=== PATIENT | female | born 1985 | race Caucasian/White ===

== ENCOUNTER 2018-05-09 03:17 | Inpatient (IN) | payer OTHER ==
[2018-05-09] MEDS ORDERED: NACL 0.9% 3 ML SYG IV (04:00)
[2018-05-09] MEDS ORDERED: ONDANSETRON 4 MG INJ IV (04:00)
[2018-05-09 04:01] LABS: ADD MAN DIFF? NO
[2018-05-09] MEDS: SOD CHLORIDE 0.9% 1,000 ML IV (04:08)
[2018-05-09 04:16] LABS: BASOPHILS % 0.7 % (0.0-2.0); EOSINOPHILS # 0.1 10^3/ul (0.0-0.5); HEMATOCRIT 31.1 % (37.0-47.0); HEMOGLOBIN 9.7 g/dl (12.0-16.0); LYMPHOCYTES % 33.8 % (15.0-51.0); MEAN CORPUSCULAR HGB CONC 31.2 g/dl (32.0-37.0); MEAN CORPUSCULAR VOLUME 76.8 fl (82.0-101.0); MEAN PLATELET VOLUME 10.5 fl (7.4-10.4); MONOCYTE # 0.5 10^3/ul (0.3-0.9); MONOCYTES % 8.4 % (0.0-11.0); NEUTROPHIL # 3.3 10^3/ul (1.6-7.5); NEUTROPHILS % 54.8 % (39.0-77.0); PLATELET COUNT 294 10^3/UL (140-415); RED BLOOD COUNT 4.05 10^6/ul (4.20-5.40); RED CELL DISTRIBUTION WIDTH 15.2 % (11.5-14.5)
[2018-05-09 04:17] LABS: PLATELET COUNT 285 10^3/UL (140-415)
[2018-05-09 04:22] LABS: ALANINE AMINOTRANSFERASE 148 IU/L (13-69); ALBUMIN 3.4 g/dl (3.3-4.9); ALBUMIN/GLOBULIN RATIO 1.13; ALKALINE PHOSPHATASE 77 IU/L (42-121); ANION GAP 13 (5-13); ASPARTATE AMINO TRANSFERASE 135 IU/L (15-46); BLOOD UREA NITROGEN 4 mg/dl (7-20); CALCIUM 8.6 mg/dl (8.4-10.2); CARBON DIOXIDE 22 mmol/L (21-31); CHLORIDE 106 mmol/L (97-110); CREATININE 0.49 mg/dl (0.44-1.00); Estimated GFR > 60 mL/min (>60); GLUCOSE 80 mg/dl (70-220); MAGNESIUM 1.7 mg/dl (1.7-2.5); SODIUM 141 mmol/L (135-144); TOTAL PROTEIN 6.4 g/dl (6.1-8.1)
[2018-05-09 05:01] LABS: INR 1.14; PARTIAL THROMBOPLASTIN TIME 30.2 Sec (23.0-35.0); PROTIME 14.7 Sec (11.9-14.9); PT RATIO 1.1
[2018-05-09 05:06] LABS: THROMBIN TIME 16.1 SEC (13.8-19.1)
[2018-05-09] MEDS: PIPER-TAZO 3.375 GM IV (PMX) 100 ML IVPB ×3 (05:30→19:10)
[2018-05-09] MEDS: PANTOPRAZOLE 40 MG INJ IV (05:30)
[2018-05-09] MEDS: morphine 2 MG INJ IV (10:45)
[2018-05-09] MEDS: FAMOTIDINE 20 MG INJ IV (13:41)
[2018-05-09] MEDS: morphine 4 MG/ML VIAL IV ×2 (19:00→23:59)
[2018-05-10] MEDS: PIPER-TAZO 3.375 GM IV (PMX) 100 ML IVPB ×5 (00:07→19:35)
[2018-05-10 05:11] LABS: ADD MAN DIFF? NO
[2018-05-10 05:15] LABS: BASOPHILS % 0.4 % (0.0-2.0); EOSINOPHILS # 0.2 10^3/ul (0.0-0.5); HEMATOCRIT 29.5 % (37.0-47.0); HEMOGLOBIN 9.2 g/dl (12.0-16.0); LYMPHOCYTES % 41.8 % (15.0-51.0); MEAN CORPUSCULAR HEMOGLOBIN 23.9 pg (29.0-33.0); MEAN CORPUSCULAR HGB CONC 31.2 g/dl (32.0-37.0); MEAN CORPUSCULAR VOLUME 76.6 fl (82.0-101.0); MEAN PLATELET VOLUME 10.2 fl (7.4-10.4); MONOCYTE # 0.4 10^3/ul (0.3-0.9); MONOCYTES % 9.1 % (0.0-11.0); NEUTROPHIL # 2.1 10^3/ul (1.6-7.5); NEUTROPHILS % 44.5 % (39.0-77.0); PLATELET COUNT 281 10^3/UL (140-415); RED BLOOD COUNT 3.85 10^6/ul (4.20-5.40); RED CELL DISTRIBUTION WIDTH 15.3 % (11.5-14.5)
[2018-05-10 05:15] LABS: WHITE BLOOD COUNT 4.8 10^3/ul (4.8-10.8)
[2018-05-10] MEDS: PANTOPRAZOLE 40 MG INJ IV (05:28)
[2018-05-10] MEDS: morphine 4 MG/ML VIAL IV ×4 (05:29→20:33)
[2018-05-10 05:41] LABS: ALANINE AMINOTRANSFERASE 97 IU/L (13-69); ALBUMIN 3.2 g/dl (3.3-4.9); ALKALINE PHOSPHATASE 70 IU/L (42-121); ANION GAP 14 (5-13); ASPARTATE AMINO TRANSFERASE 59 IU/L (15-46); BLOOD UREA NITROGEN 3 mg/dl (7-20); CALCIUM 8.5 mg/dl (8.4-10.2); CARBON DIOXIDE 22 mmol/L (21-31); CHLORIDE 106 mmol/L (97-110); CREATININE 0.52 mg/dl (0.44-1.00); Estimated GFR > 60 mL/min (>60); GLUCOSE 67 mg/dl (70-220); LIPASE 56 U/L (23-300); MAGNESIUM 1.8 mg/dl (1.7-2.5); POTASSIUM 3.9 mmol/L (3.5-5.1); SODIUM 142 mmol/L (135-144); TOTAL PROTEIN 6.1 g/dl (6.1-8.1)
[2018-05-10] MEDS ORDERED: KETOROLAC 30 MG INJ (09:41)
[2018-05-10] MEDS ORDERED: ROPIVACAINE 0.5 % 30 ML VIAL (09:41)
[2018-05-10] MEDS ORDERED: METOCLOPRAMIDE 10 MG INJ (09:41)
[2018-05-10] MEDS ORDERED: PROPOFOL 20 ML (09:41)
[2018-05-10] MEDS ORDERED: NEOSTIGMINE 3 MG/3 ML SYRINGE (09:41)
[2018-05-10] MEDS ORDERED: ONDANSETRON 4 MG INJ (09:41)
[2018-05-10] MEDS ORDERED: ROCURONIUM 50 MG INJ (09:41)
[2018-05-10] MEDS ORDERED: GLYCOPYRROLATE 0.4 MG INJ (09:41)
[2018-05-10] MEDS ORDERED: HYDROmorphONE 1 MG/5 ML IV SYRINGE IV (10:00)
[2018-05-10] MEDS ORDERED: INFLUENZA VIRUS VACCINE 0.5 ML (DISPENSING) IM* (10:00)
[2018-05-10] MEDS ORDERED: KETOROLAC 30 MG INJ IV (10:00)
[2018-05-10] MEDS ORDERED: EPHEDrine 25 MG/5 ML SYG (10:28)
[2018-05-10] MEDS ORDERED: PHENYLephrine 10 MG INJ (11:19)
[2018-05-10] MEDS: BUPIVACAINE 0.5%/EPI (SDV) 30 ML INJ (11:23)
[2018-05-10] MEDS ORDERED: morphine 2 MG INJ IV (11:30)
[2018-05-10] MEDS: ONDANSETRON 4 MG INJ IV ×2 (11:32→18:25)
[2018-05-10] MEDS: MEPERIDINE 25 MG INJ IV (11:32)
[2018-05-10] MEDS: HYDROmorphONE 1 MG/5 ML IV SYRINGE IV ×2 (11:32→11:40)
[2018-05-10] MEDS: DIPHENHYDRAMINE 50 MG INJ IV (11:47)
[2018-05-10] MEDS: OXYCODONE/ACETAMINOPHEN (5/325) TAB PO (18:32)
[2018-05-10] MEDS: SOD CHLORIDE 0.9% 1,000 ML IV ×3 (19:30→20:34)
[2018-05-11] MEDS: ONDANSETRON 4 MG INJ IV ×2 (00:13→08:55)
[2018-05-11] MEDS: PIPER-TAZO 3.375 GM IV (PMX) 100 ML IVPB ×5 (00:15→23:36)
[2018-05-11] MEDS: morphine 4 MG/ML VIAL IV ×2 (00:15→05:36)
[2018-05-11 05:24] LABS: ADD MAN DIFF? NO
[2018-05-11 05:26] LABS: WHITE BLOOD COUNT 6.6 10^3/ul (4.8-10.8)
[2018-05-11 05:26] LABS: BASOPHILS % 0.3 % (0.0-2.0); EOSINOPHILS # 0.1 10^3/ul (0.0-0.5); EOSINOPHILS % 0.9 % (0.0-7.0); HEMATOCRIT 30.4 % (37.0-47.0); HEMOGLOBIN 9.5 g/dl (12.0-16.0); LYMPHOCYTES # 1.4 10^3/ul (0.8-2.9); LYMPHOCYTES % 20.4 % (15.0-51.0); MEAN CORPUSCULAR HEMOGLOBIN 24.1 pg (29.0-33.0); MEAN CORPUSCULAR HGB CONC 31.3 g/dl (32.0-37.0); MEAN PLATELET VOLUME 10.3 fl (7.4-10.4); MONOCYTE # 0.6 10^3/ul (0.3-0.9); MONOCYTES % 8.6 % (0.0-11.0); NEUTROPHIL # 4.6 10^3/ul (1.6-7.5); NEUTROPHILS % 69.5 % (39.0-77.0); PLATELET COUNT 300 10^3/UL (140-415); RED BLOOD COUNT 3.95 10^6/ul (4.20-5.40); RED CELL DISTRIBUTION WIDTH 15.2 % (11.5-14.5)
[2018-05-11] MEDS: PANTOPRAZOLE 40 MG INJ IV (05:35)
[2018-05-11 05:43] LABS: ALANINE AMINOTRANSFERASE 206 IU/L (13-69); ALBUMIN 3.3 g/dl (3.3-4.9); ALKALINE PHOSPHATASE 92 IU/L (42-121); ANION GAP 15 (5-13); ASPARTATE AMINO TRANSFERASE 169 IU/L (15-46); BILIRUBIN,INDIRECT 0.4 mg/dl (0-1.1); BILIRUBIN,TOTAL 0.4 mg/dl (0.2-1.3); CALCIUM 8.6 mg/dl (8.4-10.2); CARBON DIOXIDE 21 mmol/L (21-31); CHLORIDE 103 mmol/L (97-110); CREATININE 0.55 mg/dl (0.44-1.00); Estimated GFR > 60 mL/min (>60); GLUCOSE 62 mg/dl (70-220); POTASSIUM 3.6 mmol/L (3.5-5.1); SODIUM 139 mmol/L (135-144); TOTAL PROTEIN 6.3 g/dl (6.1-8.1)
[2018-05-11 05:47] LABS: BLOOD UREA NITROGEN < 2 mg/dl (7-20)
[2018-05-11] MEDS: SOD CHLORIDE 0.9% 1,000 ML IV (12:26)
[2018-05-11] MEDS: METOCLOPRAMIDE 10 MG INJ IV ×2 (13:20→22:21)
[2018-05-11] MEDS: OXYCODONE/ACETAMINOPHEN (5/325) TAB PO ×2 (15:59→22:21)
[2018-05-12] MEDS: SOD CHLORIDE 0.9% 1,000 ML IV (03:07)
[2018-05-12 05:11] LABS: ADD MAN DIFF? NO
[2018-05-12 05:18] LABS: BASOPHILS % 0.5 % (0.0-2.0); EOSINOPHILS # 0.1 10^3/ul (0.0-0.5); EOSINOPHILS % 2.2 % (0.0-7.0); HEMATOCRIT 29.7 % (37.0-47.0); HEMOGLOBIN 9.5 g/dl (12.0-16.0); LYMPHOCYTES # 1.6 10^3/ul (0.8-2.9); LYMPHOCYTES % 28.9 % (15.0-51.0); MEAN CORPUSCULAR HEMOGLOBIN 24.2 pg (29.0-33.0); MEAN CORPUSCULAR VOLUME 75.8 fl (82.0-101.0); MEAN PLATELET VOLUME 10.6 fl (7.4-10.4); MONOCYTE # 0.5 10^3/ul (0.3-0.9); NEUTROPHIL # 3.3 10^3/ul (1.6-7.5); PLATELET COUNT 308 10^3/UL (140-415); RED BLOOD COUNT 3.92 10^6/ul (4.20-5.40); RED CELL DISTRIBUTION WIDTH 15.5 % (11.5-14.5)
[2018-05-12 05:18] LABS: WHITE BLOOD COUNT 5.5 10^3/ul (4.8-10.8)
[2018-05-12 05:33] LABS: ALANINE AMINOTRANSFERASE 238 IU/L (13-69); ALBUMIN 3.3 g/dl (3.3-4.9); ALBUMIN/GLOBULIN RATIO 1.13; ALKALINE PHOSPHATASE 119 IU/L (42-121); ANION GAP 7 (5-13); ASPARTATE AMINO TRANSFERASE 212 IU/L (15-46); BILIRUBIN,INDIRECT 0.2 mg/dl (0-1.1); BILIRUBIN,TOTAL 0.2 mg/dl (0.2-1.3); BLOOD UREA NITROGEN 3 mg/dl (7-20); CALCIUM 8.4 mg/dl (8.4-10.2); CARBON DIOXIDE 22 mmol/L (21-31); CHLORIDE 113 mmol/L (97-110); CREATININE 0.54 mg/dl (0.44-1.00); Estimated GFR > 60 mL/min (>60); GLUCOSE 105 mg/dl (70-220); POTASSIUM 3.3 mmol/L (3.5-5.1); SODIUM 142 mmol/L (135-144); TOTAL PROTEIN 6.2 g/dl (6.1-8.1)
[2018-05-12] MEDS: PIPER-TAZO 3.375 GM IV (PMX) 100 ML IVPB (05:47)
[2018-05-12] MEDS: PANTOPRAZOLE (EC) 40 MG TAB PO (05:47)
[2018-05-12 07:23] LABS: IRON 16 ug/dl (35-150)
[2018-05-12 07:32] LABS: % IRON SATURATION 5 % SAT (22-52); TOTAL IRON BINDING CAPACITY 332 ug/dl (241-421)
[2018-05-12] MEDS: ACETAMINOPHEN 325 MG TAB PO (07:47)
[2018-05-12] MEDS: POTASSIUM CHLORIDE (SR) 20 MEQ TAB PO (11:17)
== END 2018-05-12 11:26 | disposition home or self-care (01) | DRG 419 ==
LOC: MS1 03:17
PROC: 0FT44ZZ Resection of Gallbladder, Percutaneous Endoscopic Approach (ICD-10-PCS; principal; 2018-05-10 10:09)
PROC: 0W9J30Z Drainage of Pelvic Cavity with Drainage Device, Percutaneous Approach (ICD-10-PCS; 2018-05-10 10:09)
DX: K80.12 Calculus of gallbladder with acute and chronic cholecystitis without obstruction (principal); D64.9 Anemia, unspecified
CPT/HCPCS: 74181; 78226; 80053; 83540; 83690; 83735; 84443; 84703; 85025; 85049; 85610; 85670; 85730; 88304